=== PATIENT | female | born 1940 | race Caucasian/White ===

== ENCOUNTER → 2017-06-15 | Outpatient (CLI) | payer MEDICARE, BC ==
[~2017-06-15] MED LIST: ALENDRONATE SOD70 MG PO; ALTACE PO; AMOXICILLIN500 M1 PO; ASPIRIN81 M1 PO; AUGMENTIN PO; CIPRO PO; CIPRO250 MG PO; COLACE PO; COLACE50 MG PO; COMPLETE MULTI1 EACH PO; DEMADEX PO; DOXYCYCLINE HY100 M1; FOLIC ACID PO; FOLIC ACID1 MG PO; FOSAMAX PO; GLUCOPHAGE850 MG PO; LASIX PO; LEVAQUIN PO; LEVOTHROID50 MCG PO; LEVOTHYROXINE50 MCG PO; LIPITOR PO; LISINOPRIL PO; LISINOPRIL10 MG PO; LORTAB 7.51 TAB 7.5/ PO; MELLARIL PO; MELLARIL25 MG PO; METFORMIN HCL850 MG PO; METFORMIN PO; MULTIPLE VITAMI1 T11 PO; MULTIVITAMIN1 UDCAP PO; NABUMETONE500 MG PO; NIFEREX-150 CAP1 CAP PO; PERCOCET 5-3251 TAB PO; PERCOCET5/325 PO; PRAVACHOL PO; PRAVASTATIN SOD40 MG PO; SINGULAIR PO; SYNTHROID PO; TIGECYCLINE IV; TOPROL XL PO; TORSEMIDE10 MG PO; TRAVATAN2.5 ML OU; TRAVATAN5 ML OP; TRAVATAN5 ML OU; VICOPROFEN 200-1 TAB PO; VITAL-D RX TABL1 TAB PO; VITAMIN B 12 SHOT; VITAMIN B-1000 MCG/1 IJ; VITAMIN B-1000 MCG/1 SUBQ; VITAMIN D1000 UNI1 PO; VITAMIN D5000 UNIT PO; VITEYE PO; [UNRECOGNIZED DRUG - OTHER]
[2017-06-15 09:59] LABS: CREATININE,RANDOM URINE 22 mg/dL; TOTAL PROTEIN,RANDOM URINE <10 mg/dl (<10)
[2017-06-15 10:54] LABS: ALBUMIN SERUM 4.6 g/dL (3.5-5.0); BUN/CREATININE RATIO 14.54; CALCIUM SERUM 10.2 mg/dL (8.4-10.2); CREATININE SERUM 2.2 mg/dL (0.6-1.4); GLOM FILT RATE Estimated 21.4 mL/min (>60); PHOSPHOROUS 3.4 mg/dL (2.5-4.6); POTASSIUM 4.6 mmol/L (3.5-5.1)
== END | disposition home or self-care (01) ==
LOC: CLAB 08:59
PROVIDERS: Internal Medicine Nephrology
DX: N18.3 Chronic kidney disease, stage 3 (moderate) (principal)
CPT/HCPCS: 36415; 80069; 82570; 84156